=== PATIENT | male | born 1960 | race Hispanic/Latino ===

== ENCOUNTER 2019-03-30 14:30 | Emergency (ER) | payer OTHER | END 2019-03-30 15:15 | disposition left against medical advice (07) | LOC: EDH 14:30 | DX: K92.0 Hematemesis (principal); Z90.49 Acquired absence of other specified parts of digestive tract; Z72.0 Tobacco use; Z53.21 Procedure and treatment not carried out due to patient leaving prior to being seen by health care provider | CPT/HCPCS: 93005 ==

== ENCOUNTER 2020-12-04 15:42 | Emergency (ER) | payer OTHER ==
[~2020-12-04] VITALS: Ht 193 cm; Wt 84.4 kg
[2020-12-04 15:44] VITALS: BP 111/68
== END 2020-12-04 16:22 ==
LOC: EDH 15:42
DX: Z02.89 Encounter for other administrative examinations (principal); R10.9 Unspecified abdominal pain; R05 Cough; R11.2 Nausea with vomiting, unspecified

== ENCOUNTER 2021-08-25 10:39 | Emergency (ER) | payer OTHER ==
[~2021-08-25] VITALS: Ht 185.4 cm; Wt 95.3 kg
[2021-08-25 10:40] VITALS: BP 144/74
[2021-08-25] MEDS ORDERED: CEFTRIAXONE 1G VIAL IM ONE (11:00)
[2021-08-25] MEDS ORDERED: TETANUS/DIPHTHERIA TOXOID [ADULT] 0.5 ML VIAL IM ONE (11:00)
[2021-08-25] MEDS ORDERED: LIDOCAINE HCL-MPF 1% 2ML VIAL ONE (11:05)
[2021-08-25] MEDS ORDERED: KETOROLAC 30MG VIAL (30MG/ML) IM ONE (11:30)
== END 2021-08-25 13:02 | disposition left against medical advice (07) ==
LOC: EDH 10:39
DX: S61.301A Unspecified open wound of left index finger with damage to nail, initial encounter (principal); Z79.1 Long term (current) use of non-steroidal anti-inflammatories (NSAID); X58.XXXA Exposure to other specified factors, initial encounter; Y93.89 Activity, other specified; Y92.89 Other specified places as the place of occurrence of the external cause; Y99.8 Other external cause status
CPT/HCPCS: 73130; 90471; 90714; 96372; 99284; J0696; J1885; J3490